=== PATIENT | female | born 1960 | race African-American/Black ===

== ENCOUNTER 2019-05-12 10:41 | Emergency (ER) | payer OTHER ==
[2019-05-12 10:46] VITALS: BP 176/78; PULSE 81; TEMP 97; BMI 37.5
[2019-05-12] MEDS ORDERED: ACETAMINOPHEN 325 MG TABLET (FP) PO ONE (11:10)
--- NOTE | 2019-05-12 11:16 | PDOC ---
History of Present Illness - General Chief Complaint: Toothache Stated Complaint: TOOTHACHE Time Seen by Provider: 05/12/19 11:02 History Source: Patient Exam Limitations: No Limitations - History of Present Illness Initial Comments: 05/12/19 11:20 58-year-old female presents to ED with complaints of right lower quadrant dental pain for the past 2 days after she ate chips. Patient states was pending a tooth extraction of that tooth but had knee replacement a few months ago and was waiting a little bit longer for the extraction. Patient denies swelling of the face fever, chills difficulty swallowing, or dizziness. Patient does state mild ear pain and right-sided headache secondary to dental pain. Timing/Duration: constant Severity: moderate Associated Symptoms: reports: other Past History - Travel Traveled outside of the country in the last 30 days: No Close contact w/someone who was outside of country & ill: No - Past Medical History Allergies/Adverse Reactions: Allergies Allergy/AdvReac Type Severity Reaction Status Date / Time Penicillins Allergy Severe Verified 05/12/19 10:46 Home Medications: Ambulatory Orders Aspirin Coated [Ecotrin -] 81 mg PO DAILY 07/12/13 Lovastatin 40 mg PO HS 07/12/13 Levothyroxine [Synthroid -] 75 mcg PO DAILY 04/03/14 Oxycodone HCl/Acetaminophen [Percocet 5-325 mg Tablet] 1 - 2 tab PO Q4H #20 tablet 04/10/14 Oxycodone HCl/Acetaminophen [Percocet 5-325 mg Tablet] 1 - 2 tab PO Q6H PRN #12 tab MDD 4 05/12/19 Anemia: No Asthma: No Cancer: No Cardiac Disorders: No CVA: No COPD: No CHF: No Dementia: No Diabetes: No GI Disorders: No Disorders: No HTN: Yes Hypercholesterolemia: Yes Liver Disease: No Seizures: No Thyroid Disease: Yes (HYPO) - Surgical History Abdominal Surgery: No Appendectomy: No Cardiac Surgery: No Cholecystectomy: No Lung Surgery: No Neurologic Surgery: No Orthopedic Surgery: No - Suicide/Smoking/Psychosocial Hx Smoking History: Never smoked Have you smoked in the past 12 months: No If you are a former smoker, when did you quit?: 10YRS AGO Hx Alcohol Use: Yes (WINE OCC) Drug/Substance Use Hx: No Substance Use Type: Alcohol Hx Substance Use Treatment: No Patient Lives Alone: No Lives with/in: spouse/SO Review of Systems - Review of Systems Able to Perform ROS?: Yes Constitutional: No: Symptoms Reported HEENTM: Yes: Mouth Pain, Dental Problems Respiratory: No: Symptoms reported Cardiac (ROS): No: Symptoms Reported ABD/GI: No: Symptoms Reported : No: Symptoms Reported Musculoskeletal: No: Symptoms Reported Integumentary: No: Symptoms Reported Neurological: Yes: Headache (rt sided) Hematologic/Lymphatic: No: Symptoms Reported *Physical Exam - Vital Signs Last Vital Signs Temp Pulse Resp BP Pulse Ox 97 F L 81 18 176/78 H 100 05/12/19 10:43 05/12/19 10:43 05/12/19 10:43 05/12/19 10:43 05/12/19 10:43 - Physical Exam General Appearance: Yes: Nourished, Appropriately Dressed. No: Apparent Distress HEENT: positive: Other (tender #32 tooth with slight tapping). negative: Pharyngeal Erythema Neck: negative: Lymphadenopathy (R), Lymphadenopathy (L) Integumentary: positive: Normal Color, Warm, Moist. negative: Swelling Neurologic: positive: Motor Strength 5/5 (ambulatory) Medical Decision Making - Medical Decision Making 05/12/19 11:24 Right lower quadrant dental pain for the past few days and unable to get appointment with her dentist until Tuesday Exam: Tender #[address] tooth with [address], no signs of infection Plan pain management until she follows up with dentist on Tuesday *DC/Admit/Observation/Transfer Diagnosis at time of Disposition: Tooth ache - Discharge Dispostion Disposition: HOME Condition at time of disposition: Good - Prescriptions Prescriptions: Oxycodone HCl/Acetaminophen [Percocet 5-325 mg Tablet] 1 - 2 tab PO Q6H PRN #12 tab MDD 4 PRN Reason: Pain - Referrals Referrals: Alena Clayton [Primary Care Provider] - - Patient Instructions Printed Discharge Instructions: DI for Dental Pain Additional Instructions: Follow up with your dentist by calling him Tuesday to schedule an appointment for the extraction. In the meanwhile do not chew on that side. May apply heat or ice to the area ( whatever seems to help your symptoms). Take Percocet with 1 tab of 500 mg Tylenol every 6 hours to help the pain. But do not operate any heavy machinery while taking the Percocet since it contains codeine. - Post Discharge Activity
[2019-05-12] MEDS ORDERED: ACETAMINOPHEN 325 MG TABLET (FP) ONE (11:28)
== END 2019-05-12 11:37 | disposition home or self-care (01) ==
LOC: JERFT 10:41
DX: K08.89 Other specified disorders of teeth and supporting structures (principal)
CPT/HCPCS: 99281-25

== ENCOUNTER 2019-08-26 03:39 | Emergency (ER) | payer OTHER ==
--- NOTE | 2019-08-26 04:04 | PDOC ---
History of Present Illness - General Stated Complaint: COLD Time Seen by Provider: 08/26/19 04:03 History Source: Patient Exam Limitations: No Limitations - History of Present Illness Initial Comments: 59-year-old female with past medical history of hypertension, hyperlipidemia, thyroid disease presented to the emergency apartment for left-sided back pain for a couple of days associated with a cough for two weeks. Patient reported she finished a Z pack about a week ago, prescribed by her primary care doctor for her productive yellow cough. Patient reported she took her medication as prescribed, and finished all the pills, but her cough persists. She reported the last couple of days she has noted some left-sided back pain when she coughs her when she bends over. Patient reported she feels her cough is gone on too long in the new pain is concerning her, which is where she came to the emergency department today. Patient denied fever,Chills, body aches, sore throat , headache, chest pain, shortness of breath, lower extremity swelling. ROS General: denied fever, chills, generalized weakness. HEENT: denied sore throat, rhinorrhea, ear pain. Cardiovascular: denied chest pain, palpitations, syncope, diaphoresis. Respiratory: admitted to cough. denied shortness of breath, cough, sputum production, hemoptysis. Gastrointestinal: denied abdominal pain, nausea, vomiting, diarrhea, constipation, blood in stool. Genitourinary: denied dysuria, increased urinary frequency, hematuria, urinary incontinence, flank pain. Back: admitted to back pain. Musculoskeletal: denied joint pain, muscle pain, joint swelling. Neurological: denied headache, dizziness, numbness, tingling, weakness. Integumentary: denied rash, laceration, abrasion. Hematologic/Lymphatic: denied bruising or bleeding. PE Constitutional: Well-nourished, Well-developed, appearing stated age. HEENT: head is normocephalic, atraumatic. EOMI. PERRLA. Neck: supple. Full ROM. Cardiovascular: regular heart rhythm. no murmurs. no pericardial friction rub. Respiratory: clear to auscultation bilaterally. no crackles, rhonchi or wheezing. no stridor. Gastrointestinal: soft, nontender. normal bowel sounds. no rebound, guarding, masses. Back: no ecchymoses. no midline t-spine or l-spine tenderness to palpation. tenderness to palpation along posterior lateral aspect of ribs. Extremities: peripheral pulses intact. no lower extremity edema. Neurological: CN 2-12 grossly intact. moves all four extremities. Psych: awake, alert, oriented x3. follows commands. answers questions appropriately. Past History - Past Medical History Allergies/Adverse Reactions: Allergies Allergy/AdvReac Type Severity Reaction Status Date / Time Penicillins Allergy Severe Verified 08/26/19 04:12 Home Medications: Ambulatory Orders Benzonatate [Tessalon Pearls -] 100 mg PO TID #15 capsule 08/26/19 Medical Decision Making - Medical Decision Making 59 year old female with above PMH presented to ED for cough x2 weeks and left sided posterior rib pain xa couple days. Initial Vital Signs Temp Pulse Resp BP Pulse Ox 97.9 F 67 18 136/74 97 08/26/19 04:11 08/26/19 04:11 08/26/19 04:11 08/26/19 04:11 08/26/19 04:11 Afebrile. No tachycardia. No tachypnea. No hypotension. Mild hypertension. No hypoxia on room air. Labs ordered: none Imaging ordered: CXR, left rib series Medications ordered: Tylenol 975 mg PO once Allergies: PCN 08/26/19 05:38 CXR my view shows no infiltrate, no acute rib fractures. -Pending official report Rib series my view shows no acute fracture. -Pending official report Pt reported improvement of pain with Tylenol. Pt discharged with return precautions. 08/26/19 18:49 Follow up: Official Rib series XR report: Name: JANETH STANLEY DEPARTMENT OF RADIOLOGY Phys: Gisel Dias RESIDENT : 1960 Age: 59 Sex: F [facility] Acct: [id number] Loc: [address] Exam Date: 08/26/19 Status: [facility] [place] [facility] Unit Number: [id number] ACCESSION # : [id number] EXAM#: TYPE/EXAM: RESULT: [id number] RAD/RIBS-LEFT SIDE Left RIBS : Cough for one week. Pain. 3 views of the left ribs have been submitted. There is no sign of a gross fracture. Blastic or lytic changes are not seen and there is no sign of a pneumothorax, pleural fluid or atelectasis. There is a prominent mediastinum. The soft tissues are intact. There is a bone island or calcification by the left glenoid. Correlation recommended. If symptoms persist , further imaging and orthopedic consultation may be of help. Reported By: William Saeed MD 08/26/19 0742 Official CXR report: Name: JANETH STANLEY DEPARTMENT OF RADIOLOGY Phys: Larissa, Gisel RESIDENT : 1960 Age: 59 Sex: F [facility] Acct: [id number] Loc: [facility] [address] [facility] Exam Date: 08/26/19 Status: [place] [address] Unit Number: [id number] EXAM#: TYPE/EXAM: RESULT: [id number] RAD/CHEST PA LAT Chest: Cough. Pain. 2 views of the chest reveal clear lungs, normal mediastinum and sharp angles. The bones and soft tissues are intact. Since 12/14/2018, there is no change of an adverse nature. If symptoms persist, further imaging may be of help. Reported By : William Saeed MD 08/26/19 0729 Discharge - Discharge Information Problems reviewed: Yes Clinical Impression/Diagnosis: Cough Condition: Stable Disposition: HOME - Admission No - Additional Discharge Information Prescriptions: Benzonatate [Tessalon Pearls -] 100 mg PO TID #15 capsule - Follow up/Referral Referrals: Alena Clayton [Primary Care Provider] - - Patient Discharge Instructions Additional Instructions: Follow up with your primary care doctor within 3 days regarding your Emergency Room visit. Your care is not complete until you follow up. Take Tylenol over the counter throughout the day. Take as advised on label. Return to the Emergency Department for increasing pain, chest pain, shortness of breath, continuous vomiting, fever, or any other new, worsening or concerning symptoms. I have sent a prescription to your pharmacy for Tessalon pearls to help with your cough. Take as advised on label. Your X-ray did not show pneumonia or rib fracture. Overnight the X-rays are read by the Emergency Department staff, in the morning they will be formally read by a radiologist. You will be called if there is any change. - Post Discharge Activity
[2019-08-26 04:15] VITALS: BP 136/74; PULSE 67; TEMP 97.9; BMI 34.4
[2019-08-26] MEDS ORDERED: ACETAMINOPHEN 325 MG TABLET (FP) PO ONE (04:19)
[2019-08-26] MEDS ORDERED: ACETAMINOPHEN 325 MG TABLET (FP) ONE (04:24)
--- NOTE | 2019-08-26 05:57 | PDOC ---
Attending Attestation - Resident Resident Name: Gisel Dias - ED Attending Attestation I have performed the following: I have examined & evaluated the patient, The case was reviewed & discussed with the resident, I agree w/resident's findings & plan - HPI HPI: 08/26/19 05:54 Pt comes with continued cough despite zpak being completed She has some chest wall pain from the coughing She worries that she till has a pneumonia present She has no fever and no chills. - Physicial Exam PE: 08/26/19 05:55 Normal exam afebrile VSS Pt appears in [facility] state of health Ambulating O2 sat 100% heart S1S2 RRR Lungs clear. no epigastric pain and no flank pain - Medical Decision Making 08/26/19 05:56 CXR ckear Ribs films: no fracture Pt was reassured and she will follow with her PMD as needed. She has no sign of pneumonia.
== END 2019-08-26 05:52 | disposition home or self-care (01) ==
LOC: JER 03:39
DX: R05 Cough (principal); I10 Essential (primary) hypertension; E78.5 Hyperlipidemia, unspecified; E07.9 Disorder of thyroid, unspecified
CPT/HCPCS: 71046-TC-FY; 71101-TC-LT-FY; 99283-25

== ENCOUNTER 2021-06-22 05:03 | Inpatient (IN) | payer OTHER ==
[2021-06-18 16:49] VITALS: BMI 38.2
[2021-06-22] MEDS ORDERED: PHENAZOPYRIDINE HCL 100 MG TABLET (FP) PO ONE ×2 (06:00→10:00)
[2021-06-22] MEDS ORDERED: GABAPENTIN 300 MG CAPSULE PO ONE (08:00)
[2021-06-22] MEDS ORDERED: PHENAZOPYRIDINE HCL 100 MG TABLET (FP) ONE ×2 (09:36→09:57)
[2021-06-22] MEDS ORDERED: BUPIVACAINE LIPOSOME/PF (EXPAREL) 266 MG/20 ML VIAL ONE (10:32)
[2021-06-22] MEDS ORDERED: BUPIVACAINE HCL/PF 0.5% (5MG/ML) 10 ML VIAL ONE (10:32)
[2021-06-22] MEDS ORDERED: MIDAZOLAM HCL 2 MG/2 ML SINGLE DOSE VIAL ONE ×2 (10:33)
[2021-06-22] MEDS ORDERED: ONDANSETRON 4 MG/2 ML VIAL IVPUSH PRN (10:58)
[2021-06-22] MEDS ORDERED: PROMETHAZINE HCL 25 MG/1 ML VIAL IVPB PRN ×2 (10:58)
[2021-06-22] MEDS ORDERED: DEXAMETHASONE SOD PHOSPHATE 4 MG/1 ML VIAL IVPUSH PRN (10:58)
[2021-06-22] MEDS ORDERED: TRANEXAMIC ACID 1000 MG/10 ML VIAL IVPUSH ONE (11:00)
[2021-06-22] MEDS ORDERED: ACETAMINOPHEN 1000 MG/100 ML VIAL IVPB ONE (11:00)
[2021-06-22] MEDS ORDERED: HYDROmorphone *PCA* 10MG/50ML DISP.SYRIN PCA SCH (11:00)
[2021-06-22] MEDS ORDERED: DEXMEDETOMIDINE HCL 200 MCG/2 ML IVPB ONE (11:46)
[2021-06-22] MEDS ORDERED: SCOPOLAMINE HYDROBROMIDE 1 PATCH PATCH.TD72 ONE (12:24)
[2021-06-22] MEDS ORDERED: CLINDAMYCIN 900 MG PREMIX BAG IVPB ONE (12:30)
[2021-06-22] MEDS ORDERED: HYDROmorphone HCl 2 MG/ML VIAL ONE (15:57)
[2021-06-22] MEDS ORDERED: HYDROmorphone *PCA* 10MG/50ML DISP.SYRIN ONE (17:14)
[2021-06-22] MEDS: GENTAMICIN 80 MG PREMIXED IVPB 80 MG/100 ML BAG IVPB SCH (18:30)
[2021-06-22 18:32] LABS: HEMATOCRIT 33.7 % (32.4-45.2); HEMOGLOBIN 11.2 GM/dL (10.7-15.3); MCH 28.2 pg (25.7-33.7); MCHC 33.1 g/dl (32.0-36.0); MEAN CELL VOLUME 85.2 fl (80-96); MEAN PLT VOLUME 8.6 fl (7.5-11.1); PLATELET COUNT 303 10^3/uL (134-434); RBC 3.96 M/mm3 (3.60-5.2); RDW 14.9 % (11.6-15.6); WHITE BLOOD COUNT 15.8 K/mm3 (4.0-10.0)
[2021-06-22] MEDS ORDERED: GENTAMICIN SO4 80 MG/2 ML VIAL ONE (18:34)
[2021-06-22] MEDS ORDERED: ACETAMINOPHEN INJECTION 100 ML IVPB ONE (18:35)
[2021-06-22] MEDS: ACETAMINOPHEN 1000 MG/100 ML VIAL IVPB SCH ×2 (18:42→23:43)
[2021-06-22] MEDS: LACTATED RINGERS SOLUTION 1,000 ML IV SCH (18:45)
[2021-06-22 18:53] LABS: BLOOD UREA NITROGEN 10.6 mg/dL (7-18); CALCIUM 8.3 mg/dL (8.5-10.1)
[2021-06-22] MEDS: CLINDAMYCIN 300 MG PREMIX IVPB 300 MG/50 ML BAG IVPB SCH (21:50)
[2021-06-22] MEDS: ONDANSETRON 4 MG/2 ML VIAL IVPUSH PRN (23:44)
[2021-06-23] MEDS: GENTAMICIN 80 MG PREMIXED IVPB 80 MG/100 ML BAG IVPB SCH ×3 (02:44→17:31)
[2021-06-23] MEDS: CLINDAMYCIN 300 MG PREMIX IVPB 300 MG/50 ML BAG IVPB SCH ×2 (03:42→13:15)
[2021-06-23] MEDS: LACTATED RINGERS SOLUTION 1,000 ML IV SCH ×2 (05:24→12:15)
[2021-06-23] MEDS: ACETAMINOPHEN 1000 MG/100 ML VIAL IVPB SCH ×3 (05:24→17:31)
[2021-06-23] MEDS: LEVOTHYROXINE NA 88 MCG TABLET (FP) PO SCH ×2 (06:13→12:10)
[2021-06-23 08:49] LABS: HEMATOCRIT 31.5 % (32.4-45.2); HEMOGLOBIN 10.7 GM/dL (10.7-15.3); MCH 28.5 pg (25.7-33.7); MEAN CELL VOLUME 83.8 fl (80-96); MEAN PLT VOLUME 8.3 fl (7.5-11.1); PLATELET COUNT 258 10^3/uL (134-434); RBC 3.76 M/mm3 (3.60-5.2); RDW 14.9 % (11.6-15.6); WHITE BLOOD COUNT 11.7 K/mm3 (4.0-10.0)
[2021-06-23 09:17] LABS: CALCIUM 8.7 mg/dL (8.5-10.1)
[2021-06-23 09:18] LABS: BLOOD UREA NITROGEN 10.4 mg/dL (7-18)
[2021-06-23 09:21] LABS: CREATININE 0.8 mg/dL (0.55-1.3)
[2021-06-23] MEDS ORDERED: morphine SULFATE 4 MG/ML VIAL IVPUSH PRN (09:32)
[2021-06-23] MEDS ORDERED: PATIENT'S OWN MEDICATION (NON-FORMULARY) (Valsartan/Hydrochlorothiazide [Valsartan-Hctz 80 PO SCH (10:00)
[2021-06-23] MEDS: ENOXAPARIN NA (PORCINE) 40 MG/0.4 ML DISP.SYRIN SQ SCH (11:08)
[2021-06-23] MEDS: FOLIC ACID 1 MG TABLET (FP) PO SCH (11:09)
[2021-06-23] MEDS: HYDROCHLOROTHIAZIDE 12.5 MG CAPSULE (FP) PO SCH (11:09)
[2021-06-23] MEDS: VALSARTAN 80 MG TABLET PO SCH (11:09)
[2021-06-23] MEDS: LEFLUNOMIDE 10 MG TABLET PO SCH ×2 (11:09→12:11)
[2021-06-23] MEDS: ROSUVASTATIN CA 20 MG TABLET (FP) PO SCH (11:09)
[2021-06-23] MEDS: OMEGA-3 ACID ETHYL ESTERS (FATTY-ACIDS) 1 GM CAPSULE (FP) PO SCH (11:10)
[2021-06-23] MEDS: amLODIPine BESYLATE 5 MG TABLET (FP) PO SCH ×2 (11:10→12:11)
[2021-06-23] MEDS: CHOLECALCIFEROL (VIT D3) 1,000 UNIT (25 MCG) TABLET PO SCH (11:10)
[2021-06-23] MEDS ORDERED: PCA PUMP NR ONE (15:04)
[2021-06-24] MEDS: ACETAMINOPHEN 1000 MG/100 ML VIAL IVPB SCH ×3 (00:03→12:42)
[2021-06-24] MEDS: LACTATED RINGERS SOLUTION 1,000 ML IV SCH ×3 (01:45→13:57)
[2021-06-24] MEDS: GENTAMICIN 80 MG PREMIXED IVPB 80 MG/100 ML BAG IVPB SCH ×3 (01:46→17:39)
[2021-06-24] MEDS: ONDANSETRON 4 MG/2 ML VIAL IVPUSH PRN (03:42)
[2021-06-24] MEDS: LEVOTHYROXINE NA 88 MCG TABLET (FP) PO SCH (07:07)
[2021-06-24] MEDS: ONDANSETRON 4 MG/2 ML VIAL IVPB PRN ×2 (09:21→22:46)
[2021-06-24] MEDS: ENOXAPARIN NA (PORCINE) 40 MG/0.4 ML DISP.SYRIN SQ SCH (09:28)
[2021-06-24] MEDS: LEFLUNOMIDE 10 MG TABLET PO SCH (09:29)
[2021-06-24] MEDS: ROSUVASTATIN CA 20 MG TABLET (FP) PO SCH (09:29)
[2021-06-24] MEDS: FOLIC ACID 1 MG TABLET (FP) PO SCH (09:30)
[2021-06-24] MEDS: amLODIPine BESYLATE 5 MG TABLET (FP) PO SCH (09:30)
[2021-06-24] MEDS: HYDROCHLOROTHIAZIDE 12.5 MG CAPSULE (FP) PO SCH (09:30)
[2021-06-24] MEDS: OMEGA-3 ACID ETHYL ESTERS (FATTY-ACIDS) 1 GM CAPSULE (FP) PO SCH (09:30)
[2021-06-24] MEDS: CHOLECALCIFEROL (VIT D3) 1,000 UNIT (25 MCG) TABLET PO SCH (09:30)
[2021-06-24] MEDS: VALSARTAN 80 MG TABLET PO SCH (09:30)
[2021-06-24] MEDS: PANTOPRAZOLE SODIUM 40 MG VIAL IVPUSH SCH (21:11)
[2021-06-25] MEDS: GENTAMICIN 80 MG PREMIXED IVPB 80 MG/100 ML BAG IVPB SCH ×3 (01:17→18:01)
[2021-06-25] MEDS: LACTATED RINGERS SOLUTION 1,000 ML IV SCH ×3 (01:19→15:46)
[2021-06-25] MEDS: LEVOTHYROXINE NA 88 MCG TABLET (FP) PO SCH (06:00)
[2021-06-25] MEDS: ACETAMINOPHEN 1000 MG/100 ML VIAL IVPB SCH ×3 (07:30→21:48)
[2021-06-25 10:02] LABS: BASO % 0.9 % (0-2.0); HEMATOCRIT 33.8 % (32.4-45.2); HEMOGLOBIN 10.9 GM/dL (10.7-15.3); LYMPH % 11.3 % (8-40); MCH 27.8 pg (25.7-33.7); MCHC 32.4 g/dl (32.0-36.0); MEAN CELL VOLUME 85.7 fl (80-96); MEAN PLT VOLUME 8.7 fl (7.5-11.1); MONO % 7.5 % (3.8-10.2); NEUT % 80.3 % (42.8-82.8); PLATELET COUNT 303 10^3/uL (134-434); RBC 3.94 M/mm3 (3.60-5.2); RDW 15.1 % (11.6-15.6); WHITE BLOOD COUNT 16.9 K/mm3 (4.0-10.0)
[2021-06-25] MEDS ORDERED: PT OWN MED DRAWER 7, Y5N ONE ×2 (10:16→17:08)
[2021-06-25] MEDS: ENOXAPARIN NA (PORCINE) 40 MG/0.4 ML DISP.SYRIN SQ SCH (10:18)
[2021-06-25 10:26] LABS: CALCIUM 9.2 mg/dL (8.5-10.1)
[2021-06-25] MEDS: ROSUVASTATIN CA 20 MG TABLET (FP) PO SCH (10:26)
[2021-06-25] MEDS: CLINDAMYCIN 300 MG PREMIX IVPB 300 MG/50 ML BAG IVPB SCH ×3 (10:26→17:15)
[2021-06-25] MEDS: VALSARTAN 80 MG TABLET PO SCH (10:26)
[2021-06-25] MEDS: LEFLUNOMIDE 10 MG TABLET PO SCH (10:26)
[2021-06-25] MEDS: HYDROCHLOROTHIAZIDE 12.5 MG CAPSULE (FP) PO SCH (10:27)
[2021-06-25] MEDS: FOLIC ACID 1 MG TABLET (FP) PO SCH (10:27)
[2021-06-25] MEDS: CHOLECALCIFEROL (VIT D3) 1,000 UNIT (25 MCG) TABLET PO SCH (10:27)
[2021-06-25] MEDS: amLODIPine BESYLATE 5 MG TABLET (FP) PO SCH (10:27)
[2021-06-25] MEDS: OMEGA-3 ACID ETHYL ESTERS (FATTY-ACIDS) 1 GM CAPSULE (FP) PO SCH (10:27)
[2021-06-25 10:28] LABS: BLOOD UREA NITROGEN 7.9 mg/dL (7-18)
[2021-06-25 10:30] LABS: CREATININE 0.9 mg/dL (0.55-1.3)
[2021-06-25] MEDS: PANTOPRAZOLE SODIUM 40 MG VIAL IVPUSH SCH ×2 (10:58→21:48)
[2021-06-26] MEDS: ACETAMINOPHEN 1000 MG/100 ML VIAL IVPB SCH ×4 (01:40→19:11)
[2021-06-26] MEDS ORDERED: PT OWN MED DRAWER 7, Y5N ONE ×3 (02:40→17:24)
[2021-06-26] MEDS: CLINDAMYCIN 300 MG PREMIX IVPB 300 MG/50 ML BAG IVPB SCH ×3 (02:49→17:26)
[2021-06-26] MEDS: GENTAMICIN 80 MG PREMIXED IVPB 80 MG/100 ML BAG IVPB SCH ×3 (03:00→17:59)
[2021-06-26] MEDS: LEVOTHYROXINE NA 88 MCG TABLET (FP) PO SCH (06:27)
[2021-06-26 08:23] LABS: BASO % 0.6 % (0-2.0); HEMATOCRIT 31.1 % (32.4-45.2); HEMOGLOBIN 10.2 GM/dL (10.7-15.3); LYMPH % 13.6 % (8-40); MCH 27.9 pg (25.7-33.7); MEAN CELL VOLUME 84.8 fl (80-96); MEAN PLT VOLUME 8.2 fl (7.5-11.1); MONO % 8.5 % (3.8-10.2); NEUT % 76.3 % (42.8-82.8); PLATELET COUNT 282 10^3/uL (134-434); RBC 3.67 M/mm3 (3.60-5.2); RDW 14.8 % (11.6-15.6); WHITE BLOOD COUNT 12.1 K/mm3 (4.0-10.0)
[2021-06-26 08:47] LABS: CALCIUM 8.4 mg/dL (8.5-10.1)
[2021-06-26 08:48] LABS: ALBUMIN 2.4 g/dl (3.4-5.0); BLOOD UREA NITROGEN 10.1 mg/dL (7-18)
[2021-06-26 08:51] LABS: CREATININE 0.9 mg/dL (0.55-1.3)
[2021-06-26 08:52] LABS: BILIRUBIN,TOTAL 0.5 mg/dL (0.2-1)
[2021-06-26 08:53] LABS: TOT PROT 6.1 g/dl (6.4-8.2)
[2021-06-26] MEDS ORDERED: POTASSIUM CHLORIDE TABS 20 MEQ TABLET.ER (FP) PO ONE (09:45)
[2021-06-26] MEDS ORDERED: POTASSIUM CHLORIDE 20 MEQ PREMIX IVPB 100 ML IVPB ONE (10:01)
[2021-06-26] MEDS: LEFLUNOMIDE 10 MG TABLET PO SCH (11:11)
[2021-06-26] MEDS: ROSUVASTATIN CA 20 MG TABLET (FP) PO SCH (11:11)
[2021-06-26] MEDS: HYDROCHLOROTHIAZIDE 12.5 MG CAPSULE (FP) PO SCH (11:12)
[2021-06-26] MEDS: OMEGA-3 ACID ETHYL ESTERS (FATTY-ACIDS) 1 GM CAPSULE (FP) PO SCH (11:12)
[2021-06-26] MEDS: VALSARTAN 80 MG TABLET PO SCH (11:12)
[2021-06-26] MEDS: FOLIC ACID 1 MG TABLET (FP) PO SCH (11:12)
[2021-06-26] MEDS: LACTATED RINGERS SOLUTION 1,000 ML IV SCH (11:13)
[2021-06-26] MEDS: CHOLECALCIFEROL (VIT D3) 1,000 UNIT (25 MCG) TABLET PO SCH (11:13)
[2021-06-26] MEDS: amLODIPine BESYLATE 5 MG TABLET (FP) PO SCH (11:13)
[2021-06-26] MEDS: PANTOPRAZOLE SODIUM 40 MG VIAL IVPUSH SCH ×2 (11:13→22:04)
[2021-06-26] MEDS: ENOXAPARIN NA (PORCINE) 40 MG/0.4 ML DISP.SYRIN SQ SCH (11:14)
[2021-06-26] MEDS: KCL 10 MEQ IVPB 10 MEQ/100 ML INFUS.BAG IVPB SCH ×2 (12:59→15:50)
[2021-06-26] MEDS ORDERED: amLODIPine BESYLATE 5 MG TABLET (FP) PO ONE (21:00)
[2021-06-27] MEDS ORDERED: PT OWN MED DRAWER 7, Y5N ONE ×3 (01:02→13:12)
[2021-06-27] MEDS: ACETAMINOPHEN 1000 MG/100 ML VIAL IVPB SCH (01:46)
[2021-06-27] MEDS: CLINDAMYCIN 300 MG PREMIX IVPB 300 MG/50 ML BAG IVPB SCH ×2 (02:42→09:22)
[2021-06-27] MEDS: GENTAMICIN 80 MG PREMIXED IVPB 80 MG/100 ML BAG IVPB SCH ×2 (02:42→10:44)
[2021-06-27 08:06] LABS: ALBUMIN 2.5 g/dl (3.4-5.0); CALCIUM 8.3 mg/dL (8.5-10.1); MAGNESIUM 2.1 mg/dL (1.8-2.4)
[2021-06-27 08:09] LABS: CREATININE 0.9 mg/dL (0.55-1.3)
[2021-06-27 08:11] LABS: BILIRUBIN,TOTAL 0.6 mg/dL (0.2-1); TOT PROT 6.4 g/dl (6.4-8.2)
[2021-06-27] MEDS: VALSARTAN 80 MG TABLET PO SCH (09:20)
[2021-06-27] MEDS: HYDROCHLOROTHIAZIDE 12.5 MG CAPSULE (FP) PO SCH (09:20)
[2021-06-27] MEDS: FOLIC ACID 1 MG TABLET (FP) PO SCH ×2 (09:20→12:34)
[2021-06-27] MEDS: OMEGA-3 ACID ETHYL ESTERS (FATTY-ACIDS) 1 GM CAPSULE (FP) PO SCH ×2 (09:21→12:34)
[2021-06-27] MEDS: CHOLECALCIFEROL (VIT D3) 1,000 UNIT (25 MCG) TABLET PO SCH ×2 (09:21→12:34)
[2021-06-27] MEDS: PANTOPRAZOLE SODIUM 40 MG VIAL IVPUSH SCH ×2 (09:22→21:08)
[2021-06-27] MEDS: ENOXAPARIN NA (PORCINE) 40 MG/0.4 ML DISP.SYRIN SQ SCH (09:22)
[2021-06-27] MEDS: ROSUVASTATIN CA 20 MG TABLET (FP) PO SCH ×2 (09:25→12:33)
[2021-06-27] MEDS: LACTATED RINGERS SOLUTION 1,000 ML IV SCH ×2 (10:51→23:39)
[2021-06-27 11:58] LABS: BASO % 0.4 % (0-2.0); EOS % 1.4 % (0-4.5); HEMATOCRIT 30.2 % (32.4-45.2); HEMOGLOBIN 10.2 GM/dL (10.7-15.3); LYMPH % 11.2 % (8-40); MCH 28.5 pg (25.7-33.7); MCHC 33.9 g/dl (32.0-36.0); MEAN PLT VOLUME 8.4 fl (7.5-11.1); MONO % 10.1 % (3.8-10.2); NEUT % 76.9 % (42.8-82.8); PLATELET COUNT 268 10^3/uL (134-434); RBC 3.59 M/mm3 (3.60-5.2); RDW 14.7 % (11.6-15.6); WHITE BLOOD COUNT 12.8 K/mm3 (4.0-10.0)
[2021-06-27] MEDS: LEFLUNOMIDE 10 MG TABLET PO SCH (12:32)
[2021-06-27] MEDS: LEVOTHYROXINE NA 88 MCG TABLET (FP) PO SCH (12:34)
[2021-06-27] MEDS: VANCOMYCIN/WATER BAGS 1,250 MG/250 ML BAG IVPB SCH (17:23)
[2021-06-27] MEDS ORDERED: VANCOMYCIN/WATER BAGS 1,250 MG/250 ML BAG IVPB SCH (18:00)
[2021-06-27] MEDS ORDERED: AZTREONAM 1 GM VIAL (RESTRICTED TO ID) ONE (18:05)
[2021-06-27] MEDS ORDERED: DEXTROSE 5%-WATER - 50 ML IVPB ONE (18:05)
[2021-06-27] MEDS: AZTREONAM 1 GM in DEXTROSE 5%-WATER - 50 ML IVPB SCH (19:30)
[2021-06-27] MEDS: amLODIPine BESYLATE 5 MG TABLET (FP) PO SCH (21:17)
[2021-06-28] MEDS ORDERED: AZTREONAM 1 GM VIAL (RESTRICTED TO ID) ONE ×3 (00:55→17:06)
[2021-06-28] MEDS ORDERED: DEXTROSE 5%-WATER - 50 ML IVPB ONE ×3 (00:55→17:06)
[2021-06-28] MEDS: AZTREONAM 1 GM in DEXTROSE 5%-WATER - 50 ML IVPB SCH ×3 (01:35→17:14)
[2021-06-28] MEDS: VANCOMYCIN/WATER BAGS 1,250 MG/250 ML BAG IVPB SCH ×2 (04:22→17:46)
[2021-06-28] MEDS: LEVOTHYROXINE NA 88 MCG TABLET (FP) PO SCH (06:55)
[2021-06-28] MEDS ORDERED: PT OWN MED DRAWER 7, Y5N ONE ×5 (09:53→23:22)
[2021-06-28] MEDS: VALSARTAN 80 MG TABLET PO SCH (10:35)
[2021-06-28] MEDS: PANTOPRAZOLE SODIUM 40 MG VIAL IVPUSH SCH ×2 (10:35→21:21)
[2021-06-28] MEDS: LEFLUNOMIDE 10 MG TABLET PO SCH (10:35)
[2021-06-28] MEDS: ENOXAPARIN NA (PORCINE) 40 MG/0.4 ML DISP.SYRIN SQ SCH (10:35)
[2021-06-28] MEDS: HYDROCHLOROTHIAZIDE 12.5 MG CAPSULE (FP) PO SCH (10:35)
[2021-06-28] MEDS: CHOLECALCIFEROL (VIT D3) 1,000 UNIT (25 MCG) TABLET PO SCH (10:36)
[2021-06-28] MEDS: FOLIC ACID 1 MG TABLET (FP) PO SCH (10:36)
[2021-06-28] MEDS: OMEGA-3 ACID ETHYL ESTERS (FATTY-ACIDS) 1 GM CAPSULE (FP) PO SCH (10:36)
[2021-06-28] MEDS: ROSUVASTATIN CA 20 MG TABLET (FP) PO SCH ×2 (10:37→21:21)
[2021-06-28] MEDS: LACTATED RINGERS SOLUTION 1,000 ML IV SCH ×2 (11:50→23:14)
[2021-06-28 12:46] LABS: BASO % 0.8 % (0-2.0); EOS % 1.4 % (0-4.5); HEMATOCRIT 33.2 % (32.4-45.2); HEMOGLOBIN 11.1 GM/dL (10.7-15.3); LYMPH % 10.5 % (8-40); MCH 28.5 pg (25.7-33.7); MCHC 33.4 g/dl (32.0-36.0); MEAN CELL VOLUME 85.2 fl (80-96); MEAN PLT VOLUME 8.5 fl (7.5-11.1); MONO % 7.7 % (3.8-10.2); NEUT % 79.6 % (42.8-82.8); PLATELET COUNT 308 10^3/uL (134-434); RDW 14.9 % (11.6-15.6)
[2021-06-28 13:16] LABS: CALCIUM 9.3 mg/dL (8.5-10.1)
[2021-06-28 13:17] LABS: ALBUMIN 2.6 g/dl (3.4-5.0); BLOOD UREA NITROGEN 9.6 mg/dL (7-18)
[2021-06-28 13:20] LABS: CREATININE 0.8 mg/dL (0.55-1.3)
[2021-06-28 13:21] LABS: BILIRUBIN,TOTAL 0.8 mg/dL (0.2-1); TOT PROT 6.8 g/dl (6.4-8.2)
[2021-06-28] MEDS: amLODIPine BESYLATE 5 MG TABLET (FP) PO SCH (21:20)
[2021-06-29] MEDS ORDERED: DEXTROSE 5%-WATER - 50 ML IVPB ONE ×3 (00:39→16:48)
[2021-06-29] MEDS ORDERED: AZTREONAM 1 GM VIAL (RESTRICTED TO ID) ONE ×3 (00:39→16:48)
[2021-06-29] MEDS: AZTREONAM 1 GM in DEXTROSE 5%-WATER - 50 ML IVPB SCH ×3 (01:28→17:36)
[2021-06-29] MEDS: VANCOMYCIN/WATER BAGS 1,250 MG/250 ML BAG IVPB SCH (04:53)
[2021-06-29] MEDS: LEVOTHYROXINE NA 88 MCG TABLET (FP) PO SCH (06:10)
[2021-06-29] MEDS: OMEGA-3 ACID ETHYL ESTERS (FATTY-ACIDS) 1 GM CAPSULE (FP) PO SCH (11:38)
[2021-06-29] MEDS: CHOLECALCIFEROL (VIT D3) 1,000 UNIT (25 MCG) TABLET PO SCH (11:38)
[2021-06-29] MEDS: FOLIC ACID 1 MG TABLET (FP) PO SCH (11:38)
[2021-06-29] MEDS: VALSARTAN 80 MG TABLET PO SCH (11:38)
[2021-06-29] MEDS: LEFLUNOMIDE 10 MG TABLET PO SCH (11:39)
[2021-06-29] MEDS: ENOXAPARIN NA (PORCINE) 40 MG/0.4 ML DISP.SYRIN SQ SCH (11:40)
[2021-06-29] MEDS: HYDROCHLOROTHIAZIDE 12.5 MG CAPSULE (FP) PO SCH (11:40)
[2021-06-29] MEDS: PANTOPRAZOLE SODIUM 40 MG VIAL IVPUSH SCH ×2 (12:21→21:11)
[2021-06-29 19:46] LABS: BASO % 0.6 % (0-2.0); EOS % 1.6 % (0-4.5); HEMATOCRIT 30.8 % (32.4-45.2); HEMOGLOBIN 10.4 GM/dL (10.7-15.3); MCHC 33.8 g/dl (32.0-36.0); MEAN CELL VOLUME 82.7 fl (80-96); MEAN PLT VOLUME 7.9 fl (7.5-11.1); NEUT % 77.8 % (42.8-82.8); PLATELET COUNT 304 10^3/uL (134-434); RBC 3.72 M/mm3 (3.60-5.2); RDW 14.8 % (11.6-15.6); WHITE BLOOD COUNT 12.2 K/mm3 (4.0-10.0)
[2021-06-29 20:05] LABS: CHLORIDE 103 mmol/L (98-107); SODIUM 141 mmol/L (136-145)
[2021-06-29 20:06] LABS: CALCIUM 9.1 mg/dL (8.5-10.1)
[2021-06-29 20:07] LABS: BLOOD UREA NITROGEN 3.7 mg/dL (7-18); CO2 28 mmol/L (21-32); GLUCOSE,RANDOM 110 mg/dL (74-106)
[2021-06-29 20:10] LABS: CREATININE 0.8 mg/dL (0.55-1.3)
[2021-06-29 20:11] LABS: ANION GAP 9 MMOL/L (8-16)
[2021-06-29] MEDS ORDERED: POTASSIUM CHLORIDE TABS 20 MEQ TABLET.ER (FP) PO ONE (20:25)
[2021-06-29] MEDS: KCL 10 MEQ IVPB 10 MEQ/100 ML INFUS.BAG IVPB SCH ×3 (20:37→23:31)
[2021-06-29] MEDS: ROSUVASTATIN CA 20 MG TABLET (FP) PO SCH (21:11)
[2021-06-29] MEDS: amLODIPine BESYLATE 5 MG TABLET (FP) PO SCH (21:11)
[2021-06-30] MEDS: VANCOMYCIN/WATER BAGS 1,250 MG/250 ML BAG IVPB SCH ×3 (00:06→14:35)
[2021-06-30] MEDS ORDERED: AZTREONAM 1 GM VIAL (RESTRICTED TO ID) ONE ×2 (00:46→10:36)
[2021-06-30] MEDS ORDERED: DEXTROSE 5%-WATER - 50 ML IVPB ONE ×2 (00:46→10:36)
[2021-06-30] MEDS: AZTREONAM 1 GM in DEXTROSE 5%-WATER - 50 ML IVPB SCH ×2 (01:36→10:40)
[2021-06-30] MEDS ORDERED: PT OWN MED DRAWER 7, Y5N ONE ×4 (02:42→22:30)
[2021-06-30] MEDS: LEVOTHYROXINE NA 88 MCG TABLET (FP) PO SCH (06:04)
[2021-06-30 08:21] LABS: BASO % 0.8 % (0-2.0); EOS % 2.8 % (0-4.5); HEMATOCRIT 32.8 % (32.4-45.2); HEMOGLOBIN 11.1 GM/dL (10.7-15.3); LYMPH % 15.8 % (8-40); MCH 28.5 pg (25.7-33.7); MCHC 33.8 g/dl (32.0-36.0); MEAN CELL VOLUME 84.4 fl (80-96); MEAN PLT VOLUME 8.4 fl (7.5-11.1); NEUT % 72.6 % (42.8-82.8); PLATELET COUNT 388 10^3/uL (134-434); RBC 3.89 M/mm3 (3.60-5.2); WHITE BLOOD COUNT 11.5 K/mm3 (4.0-10.0)
[2021-06-30 08:39] LABS: BLOOD UREA NITROGEN 4.7 mg/dL (7-18)
[2021-06-30 08:42] LABS: CREATININE 0.9 mg/dL (0.55-1.3)
[2021-06-30] MEDS: CHOLECALCIFEROL (VIT D3) 1,000 UNIT (25 MCG) TABLET PO SCH (10:40)
[2021-06-30] MEDS: FOLIC ACID 1 MG TABLET (FP) PO SCH (10:40)
[2021-06-30] MEDS: PANTOPRAZOLE SODIUM 40 MG VIAL IVPUSH SCH ×2 (10:40→22:40)
[2021-06-30] MEDS: HYDROCHLOROTHIAZIDE 12.5 MG CAPSULE (FP) PO SCH (10:40)
[2021-06-30] MEDS: VALSARTAN 80 MG TABLET PO SCH (10:41)
[2021-06-30] MEDS: OMEGA-3 ACID ETHYL ESTERS (FATTY-ACIDS) 1 GM CAPSULE (FP) PO SCH (10:41)
[2021-06-30] MEDS: LEFLUNOMIDE 10 MG TABLET PO SCH (10:41)
[2021-06-30] MEDS ORDERED: POTASSIUM CHLORIDE TABS 20 MEQ TABLET.ER (FP) PO ONE (10:44)
[2021-06-30] MEDS ORDERED: CLINDAMYCIN HCL 150 MG CAPSULE (FP) PO SCH (15:15)
[2021-06-30] MEDS: CLINDAMYCIN HCL 150 MG CAPSULE (FP) PO SCH ×2 (16:00→22:40)
[2021-06-30] MEDS: LACTOBACILLUS ACIDOPHILUS 1 TABLET PO SCH (16:00)
[2021-06-30] MEDS: ROSUVASTATIN CA 20 MG TABLET (FP) PO SCH (22:39)
[2021-06-30] MEDS: amLODIPine BESYLATE 5 MG TABLET (FP) PO SCH (22:40)
[2021-07-01] MEDS: LEVOTHYROXINE NA 88 MCG TABLET (FP) PO SCH (06:11)
[2021-07-01] MEDS: CLINDAMYCIN HCL 150 MG CAPSULE (FP) PO SCH ×2 (06:11→14:25)
[2021-07-01] MEDS ORDERED: POTASSIUM CHLORIDE TABS 20 MEQ TABLET.ER (FP) PO ONE (07:36)
[2021-07-01 09:07] LABS: BASO % 0.5 % (0-2.0); EOS % 3.4 % (0-4.5); HEMATOCRIT 30.8 % (32.4-45.2); HEMOGLOBIN 10.4 GM/dL (10.7-15.3); MCH 28.7 pg (25.7-33.7); MCHC 33.8 g/dl (32.0-36.0); MEAN CELL VOLUME 84.8 fl (80-96); MEAN PLT VOLUME 8.5 fl (7.5-11.1); MONO % 10.3 % (3.8-10.2); NEUT % 66.8 % (42.8-82.8); PLATELET COUNT 351 10^3/uL (134-434); RBC 3.63 M/mm3 (3.60-5.2); WHITE BLOOD COUNT 9.5 K/mm3 (4.0-10.0)
[2021-07-01 09:34] LABS: ALBUMIN 2.2 g/dl (3.4-5.0); BLOOD UREA NITROGEN 4.6 mg/dL (7-18); CALCIUM 8.2 mg/dL (8.5-10.1); MAGNESIUM 1.8 mg/dL (1.8-2.4)
[2021-07-01 09:37] LABS: PHOSPHOROUS 3.2 mg/dL (2.5-4.9)
[2021-07-01 09:38] LABS: CREATININE 0.9 mg/dL (0.55-1.3)
[2021-07-01 09:39] LABS: BILIRUBIN,TOTAL 0.4 mg/dL (0.2-1); TOT PROT 5.9 g/dl (6.4-8.2)
[2021-07-01] MEDS ORDERED: PT OWN MED DRAWER 7, Y5N ONE (09:45)
[2021-07-01] MEDS: LEFLUNOMIDE 10 MG TABLET PO SCH (09:48)
[2021-07-01] MEDS: PANTOPRAZOLE SODIUM 40 MG VIAL IVPUSH SCH (09:49)
[2021-07-01] MEDS: LACTOBACILLUS ACIDOPHILUS 1 TABLET PO SCH (09:49)
[2021-07-01] MEDS: VALSARTAN 80 MG TABLET PO SCH (09:49)
[2021-07-01] MEDS: FOLIC ACID 1 MG TABLET (FP) PO SCH (09:49)
[2021-07-01] MEDS: CHOLECALCIFEROL (VIT D3) 1,000 UNIT (25 MCG) TABLET PO SCH (09:49)
[2021-07-01] MEDS: HYDROCHLOROTHIAZIDE 12.5 MG CAPSULE (FP) PO SCH (09:49)
[2021-07-01] MEDS: OMEGA-3 ACID ETHYL ESTERS (FATTY-ACIDS) 1 GM CAPSULE (FP) PO SCH (09:49)
[2021-07-01 16:22] VITALS: BP 122/70; PULSE 84; TEMP 98
== END 2021-07-01 18:47 | disposition home or self-care (01) | DRG 742 ==
LOC: J2C 05:03 → J8W 20:04
PROVIDERS: ADMIT Obstetrics & Gynecology; ATTEND Obstetrics & Gynecology
PROC: 0DB80ZZ Excision of Small Intestine, Open Approach (ICD-10-PCS; 2021-06-22)
PROC: 0UT50ZZ Resection of Right Fallopian Tube, Open Approach (ICD-10-PCS; 2021-06-22)
PROC: 0DNW0ZZ Release Peritoneum, Open Approach (ICD-10-PCS; 2021-06-22)
PROC: 0D180Z8 Bypass Small Intestine to Small Intestine, Open Approach (ICD-10-PCS; 2021-06-22)
PROC: 0D9670Z Drainage of Stomach with Drainage Device, Via Natural or Artificial Opening (ICD-10-PCS; 2021-06-22)
PROC: 0DN80ZZ Release Small Intestine, Open Approach (ICD-10-PCS; principal; 2021-06-22 11:00)
PROC: 0UT90ZZ Resection of Uterus, Open Approach (ICD-10-PCS; 2021-06-22 11:00)
DX: D25.9 Leiomyoma of uterus, unspecified (principal); K63.1 Perforation of intestine (nontraumatic); K91.30 Postprocedural intestinal obstruction, unspecified as to partial versus complete; L76.32 Postprocedural hematoma of skin and subcutaneous tissue following other procedure; N73.6 Female pelvic peritoneal adhesions (postinfective); Z88.0 Allergy status to penicillin; E78.5 Hyperlipidemia, unspecified; E03.9 Hypothyroidism, unspecified; I10 Essential (primary) hypertension; E87.6 Hypokalemia; E66.9 Obesity, unspecified; Z68.38 Body mass index [BMI] 38.0-38.9, adult; M06.9 Rheumatoid arthritis, unspecified; Z96.641 Presence of right artificial hip joint; D72.829 Elevated white blood cell count, unspecified; Y83.8 Other surgical procedures as the cause of abnormal reaction of the patient, or of later complication, without mention of misadventure at the time of the procedure
CPT/HCPCS: 36415; 74018-TC-FY; 74019-TC-FY; 74177-TC; 80048; 80053; 83735; 84100; 85025; 85027; 87040; 87070; 87075; 87086; 87186; 87205; 88307-TC; 94010; 94760; G0480; J0131; Q9967

== ENCOUNTER 2021-07-03 16:16 | Inpatient (IN) | payer OTHER ==
[2021-07-03] MEDS ORDERED: CLINDAMYCIN 600MG PREMIX IVPB 600 MG/50 ML BAG IVPB ONE (17:33)
[2021-07-03] MEDS ORDERED: SODIUM CHLORIDE 1,000 ML IV STA (17:34)
[2021-07-03] MEDS ORDERED: VANCOMYCIN 1,000 MG in DEXTROSE 5%-WATER - 250 ML IVPB ONE (18:28)
[2021-07-03 18:45] LABS: BASO % 1.4 % (0-2.0); EOS % 1.6 % (0-4.5); HEMATOCRIT 32.8 % (32.4-45.2); HEMOGLOBIN 11.1 GM/dL (10.7-15.3); LYMPH % 17.1 % (8-40); MEAN CELL VOLUME 82.4 fl (80-96); MEAN PLT VOLUME 7.7 fl (7.5-11.1); MONO % 8.8 % (3.8-10.2); NEUT % 71.1 % (42.8-82.8); PLATELET COUNT 430 10^3/uL (134-434); RBC 3.98 M/mm3 (3.60-5.2); RDW 14.8 % (11.6-15.6); WHITE BLOOD COUNT 11.1 K/mm3 (4.0-10.0)
[2021-07-03] MEDS ORDERED: VANCOMYCIN 1 GRAM (PRE-DOCKED) 1,000 MG/250 ML BAG IVPB ONE (18:47)
[2021-07-03 18:53] LABS: INR 1.2 (0.83-1.09); PROTHROMBIN TIME (PATIENT) 13.5 SEC (9.7-13.0)
[2021-07-03 19:15] LABS: BLOOD UREA NITROGEN 10.1 mg/dL (7-18)
[2021-07-03 19:18] LABS: CREATININE 1.2 mg/dL (0.55-1.3)
[2021-07-03 19:20] LABS: BILIRUBIN,TOTAL 0.3 mg/dL (0.2-1); TOT PROT 7.1 g/dl (6.4-8.2)
[2021-07-03 19:35] LABS: ALBUMIN 2.9 g/dl (3.4-5.0); CALCIUM 9.5 mg/dL (8.5-10.1)
[2021-07-03 20:07] LABS: HIV INTERPRETATION NEGATIVE (NEGATIVE)
[2021-07-03] MEDS ORDERED: ACETAMINOPHEN WITH CODEINE 300MG/30MG TABLET PO PRN (21:18)
[2021-07-04] MEDS ORDERED: HEPARIN NA (PORCINE) 5,000 UNITS/ML 1ML VIAL ONE (01:01)
[2021-07-04] MEDS ORDERED: ACETAMINOPHEN WITH CODEINE 300MG/30MG TABLET ONE (01:01)
[2021-07-04] MEDS: ROSUVASTATIN CA 20 MG TABLET (FP) PO SCH ×2 (01:13→21:37)
[2021-07-04] MEDS: HEPARIN NA (PORCINE) 5,000 UNITS/ML 1ML VIAL SQ SCH ×3 (01:13→21:37)
[2021-07-04 03:59] VITALS: BMI 36.3
[2021-07-04] MEDS: LEVOTHYROXINE NA 88 MCG TABLET (FP) PO SCH (06:11)
[2021-07-04 08:21] LABS: BASO % 1.1 % (0-2.0); EOS % 3.4 % (0-4.5); HEMATOCRIT 31.4 % (32.4-45.2); HEMOGLOBIN 10.4 GM/dL (10.7-15.3); LYMPH % 25.7 % (8-40); MCHC 33.2 g/dl (32.0-36.0); MEAN CELL VOLUME 84.3 fl (80-96); MEAN PLT VOLUME 8.3 fl (7.5-11.1); MONO % 10.1 % (3.8-10.2); NEUT % 59.7 % (42.8-82.8); PLATELET COUNT 429 10^3/uL (134-434); RBC 3.72 M/mm3 (3.60-5.2); WHITE BLOOD COUNT 8.7 K/mm3 (4.0-10.0)
[2021-07-04 08:36] LABS: BLOOD UREA NITROGEN 8.5 mg/dL (7-18); CALCIUM 8.8 mg/dL (8.5-10.1)
[2021-07-04 08:37] LABS: ALBUMIN 2.6 g/dl (3.4-5.0)
[2021-07-04 08:39] LABS: CREATININE 0.9 mg/dL (0.55-1.3)
[2021-07-04 08:41] LABS: BILIRUBIN,TOTAL 0.4 mg/dL (0.2-1); TOT PROT 6.7 g/dl (6.4-8.2)
[2021-07-04] MEDS ORDERED: VANCOMYCIN 1 GM in D5W (PRE-DOCKED) 1,000 MG/250 ML IVPB SCH (10:00)
[2021-07-04] MEDS ORDERED: PATIENT'S OWN MEDICATION (NON-FORMULARY) (Valsartan/Hydrochlorothiazide [Valsartan-Hctz 80 PO SCH (10:00)
[2021-07-04] MEDS: ASPIRIN COATED 81 MG TABLET.EC PO SCH (10:05)
[2021-07-04] MEDS: FOLIC ACID 1 MG TABLET (FP) PO SCH (10:05)
[2021-07-04] MEDS: CHOLECALCIFEROL (VIT D3) 1,000 UNIT (25 MCG) TABLET PO SCH (10:05)
[2021-07-04] MEDS: VALSARTAN 80 MG TABLET PO SCH (10:05)
[2021-07-04] MEDS ORDERED: PT OWN MED DRAWER 7, Y5N ONE ×3 (11:13→21:51)
[2021-07-04] MEDS ORDERED: POLYETHYLENE GLYCOL (HEALTHYLAX) 3350 17 GM PACKET PO PRN (13:27)
[2021-07-04] MEDS: VANCOMYCIN PREMIX 1.5 GM 1,500 MG/300 ML BAG IVPB SCH ×2 (14:26→22:01)
[2021-07-04] MEDS: amLODIPine BESYLATE 5 MG TABLET (FP) PO SCH (14:40)
[2021-07-04] MEDS: HYDROCHLOROTHIAZIDE 12.5 MG CAPSULE (FP) PO SCH (14:40)
[2021-07-04] MEDS: LEFLUNOMIDE 10 MG TABLET PO SCH (15:20)
[2021-07-05] MEDS: LEVOTHYROXINE NA 88 MCG TABLET (FP) PO SCH (06:17)
[2021-07-05] MEDS: CHOLECALCIFEROL (VIT D3) 1,000 UNIT (25 MCG) TABLET PO SCH (11:09)
[2021-07-05] MEDS: HYDROCHLOROTHIAZIDE 12.5 MG CAPSULE (FP) PO SCH (11:09)
[2021-07-05] MEDS: VALSARTAN 80 MG TABLET PO SCH (11:09)
[2021-07-05] MEDS: amLODIPine BESYLATE 5 MG TABLET (FP) PO SCH (11:10)
[2021-07-05] MEDS: LEFLUNOMIDE 10 MG TABLET PO SCH (11:10)
[2021-07-05] MEDS: HEPARIN NA (PORCINE) 5,000 UNITS/ML 1ML VIAL SQ SCH ×2 (11:10→20:59)
[2021-07-05] MEDS: FOLIC ACID 1 MG TABLET (FP) PO SCH (11:10)
[2021-07-05] MEDS: ASPIRIN COATED 81 MG TABLET.EC PO SCH (11:10)
[2021-07-05 11:52] LABS: BASO % 0.9 % (0-2.0); EOS % 4.5 % (0-4.5); HEMATOCRIT 31.1 % (32.4-45.2); HEMOGLOBIN 10.4 GM/dL (10.7-15.3); LYMPH % 18.3 % (8-40); MCH 28.4 pg (25.7-33.7); MCHC 33.6 g/dl (32.0-36.0); MEAN CELL VOLUME 84.5 fl (80-96); MONO % 12.8 % (3.8-10.2); NEUT % 63.5 % (42.8-82.8); PLATELET COUNT 391 10^3/uL (134-434); RBC 3.68 M/mm3 (3.60-5.2); RDW 14.9 % (11.6-15.6); WHITE BLOOD COUNT 7.7 K/mm3 (4.0-10.0)
[2021-07-05 12:14] LABS: ALBUMIN 2.5 g/dl (3.4-5.0); BLOOD UREA NITROGEN 6.1 mg/dL (7-18)
[2021-07-05 12:17] LABS: CREATININE 0.9 mg/dL (0.55-1.3)
[2021-07-05 12:18] LABS: BILIRUBIN,TOTAL 0.2 mg/dL (0.2-1); TOT PROT 6.3 g/dl (6.4-8.2)
[2021-07-05] MEDS: VANCOMYCIN PREMIX 1.5 GM 1,500 MG/300 ML BAG IVPB SCH ×2 (13:03→22:28)
[2021-07-05] MEDS ORDERED: DOCUSATE SODIUM 100 MG CAPSULE (FP) PO PRN (13:13)
[2021-07-05] MEDS: ROSUVASTATIN CA 20 MG TABLET (FP) PO SCH (20:59)
[2021-07-06] MEDS: LEVOTHYROXINE NA 88 MCG TABLET (FP) PO SCH (06:40)
[2021-07-06] MEDS ORDERED: PT OWN MED DRAWER 7, Y5N ONE (10:06)
[2021-07-06] MEDS: FOLIC ACID 1 MG TABLET (FP) PO SCH (10:09)
[2021-07-06] MEDS: amLODIPine BESYLATE 5 MG TABLET (FP) PO SCH (10:09)
[2021-07-06] MEDS: HEPARIN NA (PORCINE) 5,000 UNITS/ML 1ML VIAL SQ SCH (10:09)
[2021-07-06] MEDS: VALSARTAN 80 MG TABLET PO SCH (10:09)
[2021-07-06] MEDS: CHOLECALCIFEROL (VIT D3) 1,000 UNIT (25 MCG) TABLET PO SCH (10:09)
[2021-07-06] MEDS: HYDROCHLOROTHIAZIDE 12.5 MG CAPSULE (FP) PO SCH (10:09)
[2021-07-06] MEDS: ASPIRIN COATED 81 MG TABLET.EC PO SCH (10:09)
[2021-07-06] MEDS: LEFLUNOMIDE 10 MG TABLET PO SCH (10:10)
[2021-07-06 10:19] VITALS: BP 127/64; PULSE 78; TEMP 98
[2021-07-06 10:19] LABS: EOS % 4.8 % (0-4.5); HEMATOCRIT 31.7 % (32.4-45.2); HEMOGLOBIN 10.6 GM/dL (10.7-15.3); LYMPH % 20.9 % (8-40); MCH 28.4 pg (25.7-33.7); MCHC 33.6 g/dl (32.0-36.0); MEAN CELL VOLUME 84.6 fl (80-96); MEAN PLT VOLUME 8.2 fl (7.5-11.1); MONO % 11.6 % (3.8-10.2); NEUT % 61.7 % (42.8-82.8); PLATELET COUNT 448 10^3/uL (134-434); RBC 3.75 M/mm3 (3.60-5.2); RDW 15.1 % (11.6-15.6); WHITE BLOOD COUNT 7.2 K/mm3 (4.0-10.0)
[2021-07-06 10:36] LABS: BLOOD UREA NITROGEN 7.3 mg/dL (7-18); CALCIUM 9.2 mg/dL (8.5-10.1)
[2021-07-06 10:39] LABS: CREATININE 0.9 mg/dL (0.55-1.3)
[2021-07-06] MEDS: VANCOMYCIN PREMIX 1.5 GM 1,500 MG/300 ML BAG IVPB SCH (12:25)
== END 2021-07-06 14:20 | disposition home health service (06) | DRG 863 ==
LOC: JER 16:16 → JERBED 19:40 → J5S 07-04 03:05
PROVIDERS: ADMIT Internal Medicine; ATTEND Internal Medicine
PROC: 0H97XZX Drainage of Abdomen Skin, External Approach, Diagnostic (ICD-10-PCS; principal; 2021-07-03)
DX: T81.49XA Infection following a procedure, other surgical site, initial encounter (principal); L03.311 Cellulitis of abdominal wall; Y83.8 Other surgical procedures as the cause of abnormal reaction of the patient, or of later complication, without mention of misadventure at the time of the procedure; E66.01 Morbid (severe) obesity due to excess calories; Z68.36 Body mass index [BMI] 36.0-36.9, adult; I10 Essential (primary) hypertension; E78.5 Hyperlipidemia, unspecified; K59.00 Constipation, unspecified; E03.9 Hypothyroidism, unspecified; M06.9 Rheumatoid arthritis, unspecified
CPT/HCPCS: 36415; 74177-TC; 80048; 80053; 85025; 85610; 86704; 86803; 86850; 86900; 86901; 87070; 87186; 87205; 87340; 87389; 87517; 93005; 93010; 99285-25; C9803; G0480; J1644; Q9967; U0003; U0005

== ENCOUNTER 2023-08-03 05:25 | Day surgery (SDC) | payer OTHER ==
[2023-08-01 12:46] VITALS: BMI 39.6
[2023-08-03 10:00] VITALS: RESP 18
[2023-08-03 10:27] VITALS: BP 134/72; PULSE 67; TEMP 97.8
== END 2023-08-03 10:30 | disposition home or self-care (01) ==
LOC: JASU-ENDO 05:25
PROVIDERS: ATTEND Internal Medicine Gastroenterology
PROC: 0DBH8ZX Excision of Cecum, Via Natural or Artificial Opening Endoscopic, Diagnostic (ICD-10-PCS; principal; 2023-08-03 09:00)
DX: Z12.11 Encounter for screening for malignant neoplasm of colon (principal); D12.0 Benign neoplasm of cecum; K64.8 Other hemorrhoids; K57.30 Diverticulosis of large intestine without perforation or abscess without bleeding